=== PATIENT | male | born 2000 | race Caucasian/White ===

== ENCOUNTER 2020-02-08 00:03 | Day surgery (SDC) | payer OTHER, SELFPAY ==
[2020-02-01 14:53] VITALS: BMI 20.8
[2020-02-08 10:20] VITALS: BP 118/83; PULSE 74; RESP 14; TEMP 37; O2SAT 99
[2020-02-08] MEDS: LACTATED RINGERS 1,000 ML 150 ML IV CONT (10:40)
--- NOTE | 2020-02-08 11:17 | P.PNAN_ITS ---
Anes - Initial Pre Proc Eval Procedure: Operation Date: 02/08/20 11:30 Proposed Procedures p Esophagogastroduodenoscopy - Matt Nash DO Date/Time: 02/08/20 11:17 Surgeon: Matt Nash DO Pre Op Diagnosis: IBS/ Gerd Patient Data Age: 19 Gender: M Height: 5 ft 10 in Weight: 72.2 kg Last Vital Signs Temp 98.6 F 02/08/20 10:20 Pulse 74 02/08/20 10:20 Resp 14 02/08/20 10:20 BP 118/83 02/08/20 10:20 Pulse Ox 99 02/08/20 10:20 Allergies Allergy/AdvReac Type Severity Reaction Status Date / Time cefdinir [From Omnicef] Allergy Intermediate Rash Verified 02/05/20 14:05 latex Allergy Mild Rash Verified 02/05/20 14:05 Home Medications Medication Instructions Recorded Confirmed Type Adults Multivitamin 1 tab-cap PO DAILY 02/01/20 02/08/20 History omeprazole 20 mg PO DAILY 02/01/20 02/08/20 History Patient hx anesthesia problems: none Family hx anesthesia problems: none [facility] Past Medical History Medical History (Updated 02/08/20 @ 11:17 by Donovan Flores MD) GERD (gastroesophageal reflux disease) Social History Social History Gender identity (if verbalized by the patient): Male Anes - Eval Final PreProcedure Day of Procedure 02/08/20 11:17 Patient weight: normal Heart: regular rate and rhythm Lungs: clear to auscultation Airway: Mallampati scale class II Last oral intake: >/= 8 hours ASA classification: II Emergent: no Anesthetic plan: proceed Anesthesia type and monitoring: general GIVS and standard monitoring Informed Consent: The patient's anesthetic plan and its attendant risks and benefits were discussed with the patient/family/POA. Questions were solicited and answers provided to the satisfaction of the patient/family/POA.
--- NOTE | 2020-02-08 11:45 | PM.IMHP ---
H&P: HPI History of Present Illness Chief complaint: IBS/ Gerd Narrative: Reason for evaluation GERD and irritable bowel syndrome. Impression: GERD. Alternating constipation and diarrhea compatible with irritable bowel syndrome. Patient does have a family history of ulcerative colitis. Recommendation: EGD. Colonoscopy will be scheduled. History: Very pleasant gentleman is a history reflux disease. he has heartburn 3-4 times per week. Since beginning omeprazole his symptoms have abated. Dysphagia odynophagia is denied for the most part. He does have some pill dysphagia. Nausea, vomiting and hematemesis tonight. He does have alternating constipation and diarrhea. He does have a family history of ulcerative colitis. Past medical history: GERD IBS. Past surgical history: Tonsillectomy. Family medical history: Grandmother scan and bladder cancer. Grandfather lung and heart disease. Father asthma and IBS. Sister as min IBS. Grandmother ulcerative colitis. [employer] was negative. Social history was noncontributory. Physical examination : General: very pleasant patient in no acute distress. HEENT: Head was normocephalic sclerae is clear mouth without masses neck was supple. Heart: Rate rhythm regular without S3 or S4. Lungs: CTA. Abdomen: Soft with no guarding or rigidity. Bowel sounds were active. Neurologic: Cranial nerves 2 through 12 intact. No focal defects. No clonus. Musculoskeletal system: Revealed no joint tenderness or swelling no muscle atrophy. Extremities: Reveal no significant edema. Skin: Warm and dry with normal turgor. Mental status: intact. Patient is alert and oriented. [facility] Past Medical History Medical History (Updated 02/08/20 @ 11:17 by Donovan Flores MD) GERD (gastroesophageal reflux disease) Social History Social History Gender identity (if verbalized by the patient): Male Meds Home Medications and Allergies Home Medications Medication Instructions Recorded Confirmed Type Adults Multivitamin 1 tab-cap PO DAILY 02/01/20 02/08/20 History omeprazole 20 mg PO DAILY 02/01/20 02/08/20 History Allergies Allergy/AdvReac Type Severity Reaction Status Date / Time cefdinir [From Omnicef] Allergy Intermediate Rash Verified 02/05/20 14:05 latex Allergy Mild Rash Verified 02/05/20 14:05 Vital Signs Vital Signs - 24 hr 02/08/20 10:20 Temperature 37.0 C Pulse Rate 74 Respiratory Rate 14 Blood Pressure 118/83 Pulse Oximetry 99
[2020-02-08 11:59] VITALS: BP 88/52; PULSE 86; RESP 20; O2SAT 97
[2020-02-08 12:06] VITALS: BP 88/52; PULSE 86; RESP 20; O2SAT 97
[2020-02-08 12:09] VITALS: BP 88/52; PULSE 82; RESP 20; O2SAT 98
[2020-02-08 12:19] VITALS: BP 98/49; PULSE 67; RESP 20; O2SAT 99
== END 2020-02-08 12:30 | disposition home or self-care (01) ==
PROVIDERS: PCP Pediatrics; Visit Provider Internal Medicine Gastroenterology
PROC: 0DJ08ZZ Inspection of Upper Intestinal Tract, Via Natural or Artificial Opening Endoscopic (ICD-10-PCS; CPT 43235; principal; 2020-02-08 11:30)
DX: K21.0 Gastro-esophageal reflux disease with esophagitis (principal); K22.2 Esophageal obstruction
CPT/HCPCS: 43239; 87081; 88305; J2704; J7120

== ENCOUNTER 2020-02-11 00:05 | Day surgery (SDC) | payer OTHER, SELFPAY ==
[2020-02-05 13:59] VITALS: BMI 21.2
[2020-02-11 07:49] VITALS: BP 115/82; PULSE 83; RESP 16; TEMP 36.7; O2SAT 97
[2020-02-11] MEDS: LACTATED RINGERS 1,000 ML 150 ML IV CONT ×2 (07:51→08:51)
--- NOTE | 2020-02-11 08:06 | P.PNAN_ITS ---
Anes - Initial Pre Proc Eval Procedure: Operation Date: 02/11/20 08:30 Proposed Procedures p Colonoscopy - Matt Nash DO Date/Time: 02/11/20 08:06 Surgeon: Matt Nash DO Pre Op Diagnosis: IBS/ Gerd Patient Data Age: 19 Gender: M Height: 1.78 m Weight: 67.8 kg Last Vital Signs Temp 36.7 C 02/11/20 07:49 Pulse 83 02/11/20 07:49 Resp 16 02/11/20 07:49 BP 115/82 02/11/20 07:49 Pulse Ox 97 02/11/20 07:49 Allergies Allergy/AdvReac Type Severity Reaction Status Date / Time cefdinir [From Omnicef] Allergy Intermediate Rash Verified 02/11/20 07:45 latex Allergy Mild Rash Verified 02/11/20 07:45 Home Medications Medication Instructions Recorded Confirmed Type Adults Multivitamin 1 tab-cap PO DAILY 02/01/20 02/11/20 History omeprazole 20 mg PO DAILY 02/01/20 02/11/20 History Patient hx anesthesia problems: none Family hx anesthesia problems: none COUNT INCLUDES [facility] Past Medical History Medical History (Updated 02/08/20 @ 11:17 by Donovan Flores MD) GERD (gastroesophageal reflux disease) Surgical History Surgical History (Updated 02/10/20 @ 14:19 by Cole Tolbert DO) History of tonsillectomy Social History Social History Gender identity (if verbalized by the patient): Male Anes - Eval Final PreProcedure Day of Procedure 02/11/20 08:06 Patient weight: normal Heart: regular rate and rhythm Lungs: clear to auscultation and normal air movement Airway: Mallampati scale class 1 Neurological: alert and oriented Last oral intake: >/= 8 hours ASA classification: II Emergent: no Anesthetic plan: proceed Anesthesia type and monitoring: general GIVS and standard monitoring Informed Consent: The patient's anesthetic plan and its attendant risks and benefits were discussed with the patient/family/POA. Questions were solicited and answers provided to the satisfaction of the patient/family/POA.
--- NOTE | 2020-02-11 08:20 | WPDHPUPDATE1 ---
History and Physical Update Update Date/Time: 02/11/20 08:20 History and Physical has been reviewed, including an updated exam of the patient. There are NO changes in the patient's condition. Risks, benefits, and alternatives have been discussed and questions answered. Patient agrees to proceed with procedure.
[2020-02-11 08:58] VITALS: BP 83/33; PULSE 79; RESP 20; O2SAT 96
[2020-02-11 09:08] VITALS: BP 81/34; PULSE 65; RESP 21; O2SAT 99
[2020-02-11 09:18] VITALS: BP 103/61; PULSE 63; RESP 15; O2SAT 100
[2020-02-11 09:28] VITALS: BP 105/62; PULSE 62; RESP 18; O2SAT 98
== END 2020-02-11 09:40 | disposition home or self-care (01) ==
PROVIDERS: PCP Pediatrics; Visit Provider Internal Medicine Gastroenterology
PROC: 0DJD8ZZ Inspection of Lower Intestinal Tract, Via Natural or Artificial Opening Endoscopic (ICD-10-PCS; CPT 45378; principal; 2020-02-11 08:30)
DX: K52.9 Noninfective gastroenteritis and colitis, unspecified (principal); K21.9 Gastro-esophageal reflux disease without esophagitis
CPT/HCPCS: 45380; 88305; J2704; J7120

== ENCOUNTER 2020-11-07 10:16 | Emergency (ER) | payer OTHER, SELFPAY ==
[2020-11-07 10:26] VITALS: BP 142/80; PULSE 89; RESP 20; TEMP 36.4; O2SAT 100
--- NOTE | 2020-11-07 10:52 | ED.URI ---
HPI - URI/Sore Throat General Chief Complaint: Upper Respiratory Infection Stated Complaint: sore throat/runny nose/congestion/fever Source: patient and RN notes reviewed Limitations: no limitations History of Present Illness HPI Narrative: The patient, non-smoker/nondrinker student, presents with fever. Patient states he has 1/2-week, 3-day history of fever to 101 [tympanic], associated with scratchy throat and nasal congestion. No significant cough, S OB, wheezing/sneezing, loss of taste/smell, CP, earache; he and family have been tested for Covid and he was negative last month, but family was positive.. Related Data Home Medications Medication Instructions Recorded Confirmed Adults Multivitamin 1 tab-cap PO DAILY 02/01/20 02/11/20 omeprazole 20 mg PO DAILY 02/01/20 02/11/20 Allergies Allergy/AdvReac Type Severity Reaction Status Date / Time cefdinir [From Omnicef] Allergy Intermediate Rash Verified 02/11/20 07:45 latex Allergy Mild Rash Verified 02/11/20 07:45 Review of Systems Review of Systems: Narrative: The patient has been informed that they may have pre-hypertension or Hypertension based on a BP reading in the department. I recommend that the patient call the primary care provider listed on their discharge instructions or a physician of their choice this week to arrange follow up for further evaluation of possible pre-hypertension or Hypertension General/Constitutional: No weight loss, REPORTS fever Eyes: N0: Redness,discharge Ears/Nose/Throat: No: Epistaxis,ear discharge Respiratory: Denies: Hemoptysis Gastrointestinal: No Vomiting, Bleeding-rectal Skin: No Lumps, eruption Neurologic: No Focal Weakness,Sz Hematologic: Denies: Petechiae/Purpura Psychiatric: No: Suicida ideationl All Other Systems: Reviewed and Negative [facility] Past Medical History Medical History (Updated 11/07/20 @ 10:32 by Kedar Villafuerte MD) Eosinophilic esophagitis GERD (gastroesophageal reflux disease) Surgical History Surgical History (Updated 02/10/20 @ 14:19 by Cole Tolbert DO) History of tonsillectomy Social History Social History Gender identity (if verbalized by the patient): Male Comments At time of signature, agree with nursing past medical, surgical, social and family history. There is no relevant family history pertinent to the presenting complaint Exam Narrative: Exam Narrative: General Appearance: Well appearing, Well nourished EYE: PERRLA, Conjunctiva clear Ears: Auditory canal normal, Nose: Rhinorrhea, Mucousal erythema Mouth/Throat: MM moist, Uvula midline, Pharyngeal erythema Supple, Respiratory: No respiratory distress, Breath sounds equal, Clear to auscultation Cardiovascular: RRR, No JVD Musculoskeletal: Non tender, Normal strength Skin: Warm, Dry Neurological: A&O x3, Normal affect The patient agrees, in light of health emergency- in my medical judgement, only a personal chat was preferable to fully undress & examine the patient exhibiting potential COVID symptoms, in order to limit risk of infection. Course Vital Signs Vital signs: Vital Signs Temperature 97.5 F L 11/07/20 10:26 Pulse Rate 89 11/07/20 10:26 Respiratory Rate 20 11/07/20 10:26 Blood Pressure 142/80 H 11/07/20 10:26 Pulse Oximetry 100 11/07/20 10:26 Temperature 97.5 F L 11/07/20 10:26 Pulse Rate 89 11/07/20 10:26 Respiratory Rate 20 11/07/20 10:26 Blood Pressure 142/80 H 11/07/20 10:26 Pulse Oximetry 100 11/07/20 10:26 MDM - URI/Sore Throat Lab Data Labs: Strep Screen Presumptive Negative *(Reference Range: Negative)* Discharge Plan Discharge Clinical Impression: Upper respiratory infection Patient Disposition: Home, Self-Care Condition: Stable Instructions: Antibiotic Form, Pharyngitis (ED) Prescriptions: New azithromycin 250 mg tablet See Rx Instructions .RO
== END 2020-11-07 11:02 | disposition home or self-care (01) ==
PROVIDERS: Emergency Provider Emergency Medicine; PCP Pediatrics
DX: J06.9 Acute upper respiratory infection, unspecified (principal); Z20.828 Contact with and (suspected) exposure to other viral communicable diseases; K21.9 Gastro-esophageal reflux disease without esophagitis
CPT/HCPCS: 87081; 87880; 99213; G0463

== ENCOUNTER 2021-06-23 10:08 | Emergency (ER) | payer OTHER, SELFPAY ==
[2021-06-23 10:18] VITALS: BP 120/76; PULSE 87; RESP 16; TEMP 36.9; O2SAT 100
--- NOTE | 2021-06-23 10:24 | ED.URI ---
HPI - URI/Sore Throat General Chief Complaint: Upper Respiratory Infection Stated Complaint: SINUS CONGESTION Time Seen by Provider: 06/23/21 10:11 Source: patient Mode of arrival: ambulatory Limitations: no limitations History of Present Illness HPI Narrative: 20-year-old male presents to [facility] with complaints of sinus pressure, bilateral ear pressure and postnasal drip for the past 4-5 days. Patient has been taking [id number] Claritin, Sudafed and Flonase with minimal relief. Patient reports that his father is currently ill with similar symptoms. Patient has had his tonsils removed in the past. Patient denies shortness of breath, wheezing, nausea, vomiting, diarrhea, fever, body aches or chills. Patient has received his Covid vaccine. MD elicited complaint: nasal congestion and sinus pain Onset (ago): day(s) (4) Able to tolerate fluids by mouth: Yes Exacerbating factors: nothing Treatments prior to arrival: cold medicine Related Data Home Medications Medication Instructions Recorded Confirmed omeprazole 20 mg PO DAILY 02/01/20 02/11/20 Allergies Allergy/AdvReac Type Severity Reaction Status Date / Time cefdinir [From Omnicef] Allergy Intermediate Rash Verified 11/07/20 14:29 latex Allergy Mild Rash Verified 11/07/20 14:29 aspartame AdvReac Severe SHUT LIVER Unverified 11/07/20 14:29 DOWN Review of Systems Constitutional: Constitutional: Denies chills, Denies fatigue, Denies fever(s) and Denies weakness ENT: Denies dizziness, Reports nasal congestion and Denies sore throat Cardiovascular: Cardiovascular: Denies rapid heart rate, Denies radiating jaw, neck or arm pain and Denies slow heart rate Respiratory: Respiratory: Denies chest congestion, Denies cough, Denies dyspnea and Denies wheezing Gastrointestinal: Gastrointestinal: Denies constipation, Denies diarrhea, Denies nausea and Denies vomiting Integumentary/Breasts: Skin/Breast: Denies rash Endocrine: Endocrine: Denies fatigue PMFSH Past Medical History Medical History Eosinophilic esophagitis GERD (gastroesophageal reflux disease) Surgical History Surgical History History of tonsillectomy Social History Social History Gender identity (if verbalized by the patient): Male Comments At time of signature, I agree with nursing past medical, surgical, social and family history. There is no relevant family history pertinent to the presenting complaint. Exam Const: General: no acute distress and alert Nutritional Appearance: well nourished Orientation/consciousness: patient oriented x3 HENMT: Head: normal to inspection Ears: external ears normal, TM's normal bilaterally and EAC's normal General nose exam: Normal external nose present Mouth: Yes lip normal and Yes dry mucous membranes Throat: posterior oropharynx normal and uvula midline Other: Tonsils absent, mild amount of clear postnasal drainage noted Neck: Neck: normal visual inspection Resp: Effort & Inspection: normal respiratory effort, not labored and not tachypneic Auscultation: clear to auscultation bilaterally Cardio: Rate: regular rate, not bradycardic and not tachycardic Rhythm: regular rhythm Skin: General skin exam: normal color Rashes: no rashes Wounds: no wounds Neuro: General: patient oriented x3 and moves all extremities Speech: normal speech Psych: Appearance: grossly normal Mental Status: mental status grossly normal Affect: normal affect Attitude: cooperative Thought content: Yes Normal thought content present Course Vital Signs Vital signs: Vital Signs Temperature 36.9 C 06/23/21 10:18 Pulse Rate 87 06/23/21 10:18 Respiratory Rate 16 06/23/21 10:18 Blood Pressure 120/76 06/23/21 10:18 Pulse Oximetry 100 06/23/21 10:18 Temperature 36.9 C 06/23/21 1
== END 2021-06-23 10:35 | disposition home or self-care (01) ==
PROVIDERS: Emergency Provider Nurse Practitioner Family
DX: J06.9 Acute upper respiratory infection, unspecified (principal); K21.9 Gastro-esophageal reflux disease without esophagitis
CPT/HCPCS: 99213; G0463

== ENCOUNTER 2021-10-28 16:50 | Emergency (ER) | payer OTHER, SELFPAY ==
[2021-10-28 16:58] VITALS: BP 128/73; PULSE 87; RESP 16; TEMP 36.9; O2SAT 100
--- NOTE | 2021-10-28 16:59 | ED.MALEGU ---
HPI - Male Genitourinary General Chief complaint: Urogenital-Male Stated complaint: testicular pain Time Seen by Provider: 10/28/21 17:00 Source: patient and RN notes reviewed Mode of arrival: ambulatory Limitations: no limitations History of Present Illness HPI Narrative: 21-year-old male who presents his care with complaints of 2 days history of testicle pain with increased pain today since 1500. Patient reports pain in the upper aspect of his left testicle. denies any penile drainage or any lesions. Patient voices no concern for STD's. Patient reports that he has not performed any heavy lifting or any straining for the past 2 weeks. Patient states that his pain to his left testicle comes in waves sometimes it is sharp and hurts 7/10 pain level. Patient denies any burning or pain with urination. MD Complaint: testicle pain Onset (ago): day(s) (2) Related Data Home Medications Medication Instructions Recorded Confirmed omeprazole [Prilosec] 20 mg PO DAILY 10/28/21 10/28/21 Allergies Allergy/AdvReac Type Severity Reaction Status Date / Time cefdinir [From Omnicef] Allergy Intermediate Rash Verified 10/28/21 18:44 latex Allergy Mild Rash Verified 10/28/21 18:44 aspartame AdvReac Severe SHUT LIVER Verified 10/28/21 18:44 DOWN Review of Systems Review of Systems: CONSTITUTIONAL: Denies fever, chills, or sweats. EYES: Denies visual changes, redness, or discharge. ENT: Denies rhinorrhea, congestion, sore throat, or otalgia. CARDIOVASCULAR: Denies chest pain, palpitations, or edema. RESPIRATORY: Denies cough or dyspnea. GASTROINTESTINAL: Denies abdominal pain, nausea, vomiting, or diarrhea. GENITOURINARY: Denies dysuria or hematuria.positive for left testicle pain SKIN: Denies rash or itching. MUSCULOSKELETAL: Denies back pain, joint pain, or myalgia. NEUROLOGIC: Denies headache, numbness, or weakness. PSYCHIATRIC: Denies anxiety or depression. All systems reviewed & are unremarkable except as noted in HPI and below PMFSH Past Medical History Medical History Eosinophilic esophagitis GERD (gastroesophageal reflux disease) Surgical History Surgical History History of tonsillectomy Family History Family History (Updated 10/28/21 @ 17:22 by Erna Abbott NP) Other Family history non-contributory Social History Social History (Updated 10/28/21 @ 17:23 by Erna Abbott NP) Smoking status: Never smoker Gender identity (if verbalized by the patient): Male Comments At time of signature, agree with nursing past medical, surgical, social and family history. There is no relevant family history pertinent to the presenting complaint Exam Narrative: GENERAL: Well-appearing, well-nourished, and in no acute distress. HEAD: Normocephalic, atraumatic. EYES: PERRLA and EOMI. ENT: Nares clear, no rhinorrhea or epistaxis. Mucous membranes moist. NECK: Supple. no lymphadenopathy CHEST: Clear to auscultation. No respiratory distress. SAO2 100% on room air HEART: Regular rate and rhythm. No murmur heard. Normal peripheral pulses. ABDOMEN: Soft, nontender, nondistended, normal active bowel sounds. No redness or swelling to testicles, pain with palpation to left upper testicle, no drainage or lesions noted on penis. Patient denies any pain or burning with urination. EXTREMITIES: Normal range of motion. No edema. SKIN: Warm, dry, no rash. NEURO: No focal deficits. Alert and oriented x3. Course Vital Signs Vital signs: Vital Signs Temperature 36.9 C 10/28/21 16:58 Pulse Rate 87 10/28/21 16:58 Respiratory Rate 16 10/28/21 16:58 Blood Pressure 128/73 10/28/21 16:58 Pulse Oximetry 100 10/28/21 16:58 Temperature 36.9 C 10/28/21 16:58 Pulse Rate 87 10/28/21 16:58 Respiratory Rate 16 10/28/21 16:58 Blood Pressure 128/73 10/28/21 16:58 Pulse Oximetry 100 10/28/21 16:58
== END 2021-10-28 17:19 | disposition short-term general hospital (02) ==
PROVIDERS: Emergency Provider Registered Nurse
DX: N50.812 Left testicular pain (principal); K21.9 Gastro-esophageal reflux disease without esophagitis
CPT/HCPCS: 99212; G0463

== ENCOUNTER 2021-10-28 17:41 | Emergency (ER) | payer OTHER, SELFPAY ==
--- NOTE | ~2021-10-28 | US_ITS ---
US scrotum doppler INDICATION: Testicular pain. TECHNIQUE: Testicular sonogram utilizing grayscale and color Doppler FINDINGS: The testes are normal in size and appearance. No focal lesions are seen. The right testes measures 4.2 x 1.8 x 3.1 cm centimeters, and the left testis measures 4.1 x 2.1 x 2.6 cm cm. There is normal vascular flow to both testes. There is a 2 mm left epididymal cyst. There is a left varicocele. IMPRESSION: 1. Left varicocele. Reviewed, dictated and finalized at location A. TENANCE OPERATOR IMPRESSION: 1. Left varicocele.
[2021-10-28 17:43] VITALS: BP 129/73; PULSE 64; RESP 16; TEMP 36.6; O2SAT 98
[2021-10-28 18:20] LABS: Add Urine Microscopic? YES; Appearance Urine Clear (Clear); Bilirubin Urine Negative (Negative); Blood Urine Negative (Negative); Color Urine Yellow (Yellow); Glucose Urine UA Negative (Negative); Ketones Urine Negative (Negative); Leukocyte Esterase Ur Negative LEU/UL (Negative); Mucus Urine Few /lpf; Nitrate Urine Negative (Negative); Protein Urine Negative (Negative); Specific Grav Ur 1.026 (1.001-1.035); Urobilinogen Urine Negative mg/dL (<2.0)
--- NOTE | 2021-10-28 18:30 | ED.MALEGU ---
HPI - Male Genitourinary General Chief complaint: Urogenital-Male <Haleigh Gold PA-C - Last Filed: 10/28/21 19:09> Stated complaint: testicular pain <ROSALES Mina Last Filed: 10/28/21 19:09> Time Seen by Provider: 10/28/21 17:51 <ROSALES Mina Last Filed: 10/28/21 19:09> Source: patient <ROSALES Mina Last Filed: 10/28/21 19:09> Mode of arrival: ambulatory <ROSALES Mina Last Filed: 10/28/21 19:09> Limitations: no limitations <ROSALES Mina Last Filed: 10/28/21 19:09> History of Present Illness HPI Narrative: This is a 21-year-old male that presents to the emergency department for testicular pain noted since yesterday. Reports an aching pain in the left testicle. Reports worsening today which prompted him to be seen. He is evaluated at the urgent care and sent here. Denies fever, dysuria, or abnormal urethral discharge. <ROSALES Mina Last Filed: 10/28/21 19:09> Related Data Home medications: Home Medications Medication Instructions Recorded Confirmed omeprazole [Prilosec] 20 mg PO DAILY 10/28/21 10/28/21 <ROSALES Mina Last Filed: 10/28/21 19:09> Allergies/Adverse reactions: Allergies Allergy/AdvReac Type Severity Reaction Status Date / Time cefdinir [From Omnicef] Allergy Intermediate Rash Verified 10/28/21 18:44 latex Allergy Mild Rash Verified 10/28/21 18:44 aspartame AdvReac Severe SHUT LIVER Verified 10/28/21 18:44 DOWN <ROSALES Mina Last Filed: 10/28/21 19:09> Review of Systems Review of Systems: CONSTITUTIONAL: Denies fever GASTROINTESTINAL: Denies abdominal pain, nausea, vomiting GENITOURINARY: Denies dysuria or hematuria. SKIN: Denies rash <ROSALES Mina Last Filed: 10/28/21 19:09> All systems reviewed & are unremarkable except as noted in HPI and below <Haleigh Gold PA-C - Last Filed: 10/28/21 19:09> [facility] Past Medical History Medical History: Medical History Eosinophilic esophagitis GERD (gastroesophageal reflux disease) <Haleigh Gold PA-C - Last Filed: 10/28/21 19:09> Surgical History Surgical History: Surgical History History of tonsillectomy <Haleigh Gold PA-C - Last Filed: 10/28/21 19:09> Family History Family History: Family History (Updated 10/28/21 @ 17:22 by Erna Abbott NP) Other Family history non-contributory <Haleigh Gold PA-C - Last Filed: 10/28/21 19:09> Social History Social History: Social History (Updated 10/28/21 @ 17:23 by Erna Abbott NP) Smoking status: Never smoker Gender identity (if verbalized by the patient): Male <Haleigh Gold PA-C - Last Filed: 10/28/21 19:09> Exam Narrative: GENERAL: Well-appearing, well-nourished, and in no acute distress. HEAD: Normocephalic, atraumatic. EYES: EOMI. CHEST: Clear to auscultation. No respiratory distress. No wheezes rales or rhonchi HEART: Regular rate and rhythm. No murmur heard. Normal peripheral pulses. ABDOMEN: Soft, nontender, nondistended, normal active bowel sounds. No CVA tenderness EXTREMITIES: Normal range of motion. No edema. SKIN: Warm, dry, no rash. NEURO: No focal deficits. Alert and oriented x3. PSYCH: Normal mood and affect MALE GENITAL: Normal appearing genitalia. No abnormal urethral discharge. Mild tenderness to palpation of left testicle. No abnormal erythema or edema <Halegih Gold PA-C - Last Filed: 10/28/21 19:09> Course [employer] Physician Supervision I did not see this patient nor was the care plan discussed with me. I was available for evaluation and consultation, I agree with the documentation <Hardeep Smith MD - Last Filed: 10/28/21 22:02> Vital Signs Vital signs: Vital Signs Temperature 36.6 C 10/28/21 17:43 Pulse Rate 64 10/28/21
[2021-10-28 19:17] VITALS: PULSE 70; RESP 18; O2SAT 100
== END 2021-10-28 19:18 | disposition home or self-care (01) ==
PROVIDERS: Physician Assistant; Emergency Provider Emergency Medicine
DX: I86.1 Scrotal varices (principal); K21.9 Gastro-esophageal reflux disease without esophagitis; R82.998 Other abnormal findings in urine
CPT/HCPCS: 76870; 81001; 87491; 87591; 87661; 93976; 99284

== ENCOUNTER 2022-11-06 11:00 | Outpatient (CLI) | payer OTHER, SELFPAY ==
[2022-11-06 12:38] LABS: Kit Draw Collected
== END 2022-11-06 11:01 | disposition home or self-care (01) ==
LOC: ANHGOSHLAB 11:02
PROVIDERS: PCP Family Medicine; Visit Provider Family Medicine
DX: G43.909 Migraine, unspecified, not intractable, without status migrainosus (principal); Z13.29 Encounter for screening for other suspected endocrine disorder; Z79.899 Other long term (current) drug therapy; Z00.00 Encounter for general adult medical examination without abnormal findings; Z13.220 Encounter for screening for lipoid disorders; E55.9 Vitamin D deficiency, unspecified
CPT/HCPCS: 36415

== ENCOUNTER 2023-01-28 15:16 | Emergency (ER) | payer OTHER, SELFPAY ==
[2023-01-28 15:21] VITALS: BP 125/77; PULSE 97; RESP 16; TEMP 37.3; O2SAT 98
--- NOTE | 2023-01-28 15:28 | ED.URI ---
HPI - URI/Sore Throat General Chief Complaint: Upper Respiratory Infection Stated Complaint: cough, congestion, sore throat Time Seen by Provider: 01/28/23 15:41 Source: patient and RN notes reviewed Mode of arrival: ambulatory Limitations: no limitations History of Present Illness HPI Narrative: 22-year-old male presents with concern for 2 week history of cough, chest congestion. Reports he had sinus congestion and drainage which is resolving. Reports he has been using Sudafed and antihistamines. He denies shortness of breath. Reports low-grade fever MD elicited complaint: cough and sore throat Related Data Home Medications Medication Instructions Recorded Confirmed omeprazole 20 mg capsule,delayed 20 mg PO DAILY 10/28/21 01/28/23 release multivitamin (Daily Multi-Vitamin 1 tablet PO DAILY 09/13/22 01/28/23 tablet) ubrogepant 50 mg tablet (Ubrelvy) 50 mg PO PRN PRN Migraine Headache 01/28/23 01/28/23 Allergies Allergy/AdvReac Type Severity Reaction Status Date / Time cefdinir [From Omnicef] Allergy Intermediate Rash Verified 01/28/23 15:23 latex Allergy Mild Rash Verified 01/28/23 15:23 aspartame AdvReac Severe SHUT LIVER Verified 01/28/23 15:23 DOWN sumatriptan AdvReac Mild numbness Uncoded 01/28/23 15:23 in head Review of Systems Review of Systems: CONSTITUTIONAL: Reports malaise, low-grade fever. EYES: Denies visual changes, redness, or discharge. ENT: Denies rhinorrhea, congestion, sinus pain, otalgia and sore throat. CARDIOVASCULAR: Denies chest pain, palpitations, or edema. RESPIRATORY: Reports cough and chest congestion. Denies dyspnea. GASTROINTESTINAL: Denies abdominal pain, nausea, vomiting, diarrhea SKIN: Denies rash or itching. MUSCULOSKELETAL: Denies myalgia. NEUROLOGIC: Denies headache. All systems reviewed & are unremarkable except as noted in HPI and below PMFSH Past Medical History Medical History Eosinophilic esophagitis GERD (gastroesophageal reflux disease) Migraine Seasonal allergies Surgical History Surgical History History of tonsillectomy S/P scrotal varicocelectomy (~11/2021) left Family History Family History Other Family history non-contributory Social History Social History Smoking status: Never smoker Alcohol intake: never Substance use: never Substance use type: does not use Lack of Transportation: No Lack of Food: Never True Current Housing: I Have Housing Concerned About Future Housing: No Difficulty Paying Gas/Electric Bills: No Difficulty Paying for Meds: No Currently Unemployed: No Education: High School Diploma/GED Difficulty w/ Childcare or Family Care: No Living arrangements: with family Occupation/Education: student Additional occupation/education comments: [employer] Gender identity (if verbalized by the patient): Male Agree to blood products: Yes Comments At time of signature, agree with nursing past medical, surgical, social and family history. There is no relevant family history pertinent to the presenting complaint Exam Narrative: GENERAL: Nontoxic-appearing and in no acute distress. HEAD: Normocephalic EYES: PERRLA, conjunctivae clear ENT: Nares clear, clear discharge. Mucous membranes moist. TM pearly byrd with dull light reflex bilaterally; no tragal tenderness. Oropharynx not erythematous without lesions. Tonsils not enlarged and without exudate, no drooling, no hoarseness, no trismus, uvula midline. NECK: Supple. No lymphadenopathy CHEST: Clear to auscultation, breath sounds equal. No wheezing, rhonchi, rales, or stridor. No respiratory distress, speaks in full sentences. Cough noted HEART: Regular rate and rhythm. No murmur heard. SKIN: Warm, dry, no ra
== END 2023-01-28 15:53 | disposition home or self-care (01) ==
PROVIDERS: Emergency Provider Nurse Practitioner; PCP Family Medicine
DX: J06.9 Acute upper respiratory infection, unspecified (principal); K21.9 Gastro-esophageal reflux disease without esophagitis; K20.0 Eosinophilic esophagitis
CPT/HCPCS: 99213; G0463

== ENCOUNTER 2023-06-30 13:47 | Emergency (ER) | payer OTHER, SELFPAY ==
--- NOTE | 2023-06-30 13:51 | ED.URI ---
HPI - URI/Sore Throat General Chief Complaint: Upper Respiratory Infection Stated Complaint: sore throat,fever,headache Source: patient and RN notes reviewed History of Present Illness HPI Narrative: 22 yo M presents to urgent care with complaitns of sore throat and bilateral ear pressure. Pt states he has also had some nasal drainage and slight cough. Pt reports body aches and chills at home and states this all started yesterday morning. Denies any vomiting, SOB, chest pain, GRIFFIN, or congestion. Pt has taken allergy meds and ibuprofen at home. Related Data Home Medications Medication Instructions Recorded Confirmed omeprazole 20 mg capsule,delayed 20 mg PO DAILY 10/28/21 01/28/23 release multivitamin (Daily Multi-Vitamin 1 tablet PO DAILY 09/13/22 01/28/23 tablet) ubrogepant 50 mg tablet (Ubrelvy) 50 mg PO PRN PRN Migraine Headache 01/28/23 01/28/23 Allergies Allergy/AdvReac Type Severity Reaction Status Date / Time cefdinir [From Omnicef] Allergy Intermediate Rash Verified 01/28/23 15:23 latex Allergy Mild Rash Verified 01/28/23 15:23 aspartame AdvReac Severe SHUT LIVER Verified 01/28/23 15:23 DOWN sumatriptan AdvReac Mild numbness Uncoded 01/28/23 15:23 in head Review of Systems Review of Systems: CONSTITUTIONAL: Denies fever, chills, or sweats. EYES: Denies visual changes, redness, or discharge. ENT: sore throat and bilateral ear pressure CARDIOVASCULAR: Denies chest pain, palpitations, or edema. RESPIRATORY: Denies cough or dyspnea. GASTROINTESTINAL: Denies abdominal pain, nausea, vomiting, or diarrhea. GENITOURINARY: Denies dysuria or hematuria. SKIN: Denies rash or itching. MUSCULOSKELETAL: body aches NEUROLOGIC: Denies headache, numbness, or weakness. Pertinent positives per HPI. [facility] Past Medical History Medical History Eosinophilic esophagitis GERD (gastroesophageal reflux disease) Migraine Seasonal allergies Surgical History Surgical History History of tonsillectomy S/P scrotal varicocelectomy (~11/2021) left Family History Family History Other Family history non-contributory Social History Social History Smoking status: Never smoker Alcohol intake: never Substance use: never Substance use type: does not use Lack of Transportation: No Lack of Food: Never True Current Housing: I Have Housing Concerned About Future Housing: No Difficulty Paying Gas/Electric Bills: No Difficulty Paying for Meds: No Currently Unemployed: No Education: High School Diploma/GED Difficulty w/ Childcare or Family Care: No Living arrangements: with family Occupation/Education: student Additional occupation/education comments: [employer] Gender identity (if verbalized by the patient): Male Agree to blood products: Yes Comments At the time of my signature, I reviewed and agree with the nursing past medical, surgical, social, and family history. There is no relevant family history pertinent to the patient complaint. Exam Narrative: GENERAL: This is a well-nourished, well-developed patient, in no apparent distress. HEAD: normocephalic, atraumatic. EYES: Sclera clear/white. Vision is grossly intact. EARS: External ears normal, auditory canals clear and without drainage, TMs normal without perforation. Hearing grossly intact. NOSE: External nose normal with no obvious nasal discharge, nares without redness, no rhinorrhea. THROAT: Mucous membranes moist, posterior pharynx erythemic. NECK: Neck supple, non-tender without lymphadenopathy, masses or thyromegaly. CARDIOVASCULAR: Regular rate RESPIRATORY: no respiratory distress SKIN: warm, intact with no suspicious lesions or rash, good texture and turgor. NEURO: awak
[2023-06-30 14:01] VITALS: BP 107/70; PULSE 91; RESP 16; TEMP 37.1; O2SAT 98
== END 2023-06-30 14:14 | disposition home or self-care (01) ==
PROVIDERS: Emergency Provider Nurse Practitioner Family; PCP Family Medicine
DX: J02.9 Acute pharyngitis, unspecified (principal); K21.9 Gastro-esophageal reflux disease without esophagitis; K20.0 Eosinophilic esophagitis
CPT/HCPCS: 87081; 87880; 99213; G0463

== ENCOUNTER 2024-03-09 16:34 | Emergency (ER) | payer OTHER, SELFPAY ==
[2024-03-09 16:41] VITALS: BP 112/73; PULSE 67; RESP 16; TEMP 37.1; O2SAT 98
--- NOTE | 2024-03-09 16:55 | ED.GENADULT ---
HPI - General Adult General Chief complaint: Skin/Abscess/Foreign Body Stated complaint: Throat Time Seen by Provider: 03/09/24 16:50 Source: patient, RN notes reviewed and old records reviewed Mode of arrival: ambulatory Limitations: no limitations History of Present Illness HPI narrative: 23-year-old male to [facility] for complaint of food stuck in throat since yesterday morning. Patient states that he ate pancakes yesterday with blueberries, strawberries, bananas. Patient believes he has a piece of fruit stuck in his throat. Patient endorses he has been able to eat and drink multiple times yesterday and today without difficulty. Patient denies shortness of breath, throat pain, choking sensation, nausea, vomiting, cough. patient states that after breakfast yesterday he play played a game with friends for several hours that includes what he described as theatrical speaking/yelling without difficulty. on exam patient speaking in full sentences. Respirations even and nonlabored. Patient able to control secretions. No signs of distress. Related Data Home Medications Medication Instructions Recorded Confirmed omeprazole 20 mg capsule,delayed 20 mg PO DAILY 10/28/21 03/09/24 release multivitamin (Daily Multi-Vitamin 1 tablet PO DAILY 09/13/22 03/09/24 tablet) loratadine 10 mg tablet (Claritin) 10 mg PO DAILY PRN Allergy Symptoms 11/07/23 03/09/24 ubrogepant 50 mg tablet (Ubrelvy) 50 mg PO ONCE PRN Migraine Headache 11/07/23 03/09/24 Allergies Allergy/AdvReac Type Severity Reaction Status Date / Time cefdinir [From Omnicef] Allergy Intermediate Rash Verified 03/09/24 18:02 latex Allergy Mild Rash Verified 03/09/24 18:02 aspartame AdvReac Severe SHUT LIVER Verified 03/09/24 18:02 DOWN sumatriptan AdvReac Mild numbness Uncoded 03/09/24 18:02 in head Review of Systems Review of Systems: All systems reviewed & are unremarkable except as noted in HPI and below Constitutional: Constitutional: Reports as per HPI, Denies fatigue, Denies fever(s) and Denies snoring Eyes: Eyes: Reports no additional eye complaints ENT: Reports as per HPI, Denies change in voice, Denies hoarseness, Reports odynophagia and Denies throat swelling Cardiovascular: Cardiovascular: Reports no additional cardiovascular complaints, Denies chest pain and Denies dyspnea Respiratory: Respiratory: Reports as per HPI, Denies chest congestion, Denies cough, Denies dyspnea, Denies dyspnea on exertion, Denies snoring, Denies stridor and Denies wheezing Gastrointestinal: Gastrointestinal: Reports as per HPI, Denies nausea and Denies vomiting Musculoskeletal: Musculoskeletal: Reports no additional musculoskeletal complaints Neurologic: Reports system reviewed and no additional complaints, except as documented Psychiatric: Psychiatric: Reports no additional psychiatric complaints [facility] Past Medical History Medical History Eosinophilic esophagitis GERD (gastroesophageal reflux disease) Irritable bowel syndrome with constipation and diarrhea Migraine Seasonal allergies Surgical History Surgical History History of tonsillectomy S/P scrotal varicocelectomy (~11/2021) left Family History Family History Other Family history non-contributory Social History Social History Smoking status: Never smoker Alcohol intake: never Substance use: never Substance use type: does not use Lack of Transportation: No Lack of Food: Never True Current Housing: I Have Housing Concerned About Future Housing: No Difficulty Paying Gas/Electric Bills: No Difficulty Paying for Meds: No Currently Unemployed: No Education: High School Diploma/GED Difficulty w/ Childcare or Family Care: No Shandra
== END 2024-03-09 17:40 | disposition short-term general hospital (02) ==
LOC: EXPGOSH 16:38
PROVIDERS: Emergency Provider Nurse Practitioner Family; PCP Family Medicine
DX: R09.A2 Foreign body sensation, throat (principal); K20.0 Eosinophilic esophagitis; K21.9 Gastro-esophageal reflux disease without esophagitis
CPT/HCPCS: 99212; G0463

== ENCOUNTER 2024-03-09 18:00 | Emergency (ER) | payer OTHER, SELFPAY ==
[2024-03-09 18:04] VITALS: BP 133/81; PULSE 62; RESP 16; TEMP 36.7; O2SAT 100
[2024-03-09 18:36] VITALS: RESP 20; O2SAT 100
--- NOTE | 2024-03-09 20:11 | ED.GENADULT ---
HPI - General Adult General Chief complaint: Unspecified Stated complaint: foriegn body throat Time Seen by Provider: 03/09/24 20:03 Source: patient and family Mode of arrival: ambulatory Limitations: no limitations History of Present Illness HPI narrative: 23 YEARS OLD WHITE MALE CAME TO THE EMERGENCY ROOM WITH HIS MOM BECAUSE HE WAS EATING PANCAKES LAST NIGHT AND FELL SOMETHING STUCK IN HIS THROAT. PATIENT DENIES ANY DIFFICULTY SWALLOWING OR BREATHING. PATIENT REPORT HAD SIMILAR SYMPTOM WHEN HE WAS 5 YEARS OLD. Related Data Home Medications Medication Instructions Recorded Confirmed omeprazole 20 mg capsule,delayed 20 mg PO DAILY 10/28/21 03/09/24 release multivitamin (Daily Multi-Vitamin 1 tablet PO DAILY 09/13/22 03/09/24 tablet) loratadine 10 mg tablet (Claritin) 10 mg PO DAILY PRN Allergy Symptoms 11/07/23 03/09/24 ubrogepant 50 mg tablet (Ubrelvy) 50 mg PO ONCE PRN Migraine Headache 11/07/23 03/09/24 Allergies Allergy/AdvReac Type Severity Reaction Status Date / Time cefdinir [From Omnicef] Allergy Intermediate Rash Verified 03/09/24 18:02 latex Allergy Mild Rash Verified 03/09/24 18:02 aspartame AdvReac Severe SHUT LIVER Verified 03/09/24 18:02 DOWN sumatriptan AdvReac Mild numbness Uncoded 03/09/24 18:02 in head Review of Systems Review of Systems: All systems reviewed & are unremarkable except as noted in HPI and below PMFSH Past Medical History Medical History Eosinophilic esophagitis GERD (gastroesophageal reflux disease) Irritable bowel syndrome with constipation and diarrhea Migraine Seasonal allergies Surgical History Surgical History History of tonsillectomy S/P scrotal varicocelectomy (~11/2021) left Family History Family History Other Family history non-contributory Social History Social History Smoking status: Never smoker Alcohol intake: never Substance use: never Substance use type: does not use Lack of Transportation: No Lack of Food: Never True Current Housing: I Have Housing Concerned About Future Housing: No Difficulty Paying Gas/Electric Bills: No Difficulty Paying for Meds: No Currently Unemployed: No Education: High School Diploma/GED Difficulty w/ Childcare or Family Care: No Living arrangements: with family Occupation/Education: student Additional occupation/education comments: [employer] Gender identity (if verbalized by the patient): Male Agree to blood products: Yes Exam Narrative: GENERAL APPEARANCE: WELL-DEVELOPED, WELL-NOURISHED SKIN: NORMAL COLOR HEAD: NORMOCEPHALIC, NONTRAUMATIC EYES: CLEAR CONJUNCTIVA ENT: OROPHARYNX NORMAL, EARS NORMAL, NOSE NORMAL NECK: SUPPLE, NONTENDER CHEST AND RESPIRATORY: AIRWAY PATENT, NO RESPIRATORY DISTRESS, NO ACCESSORY MUSCLE USE HEART: REGULAR RATE/RHYTHM ABDOMEN: SOFT, NONTENDER, NO ORGANOMEGALY, QUIET BOWEL SOUNDS VASCULAR: NORMAL PERIPHERAL PULSES, NORMAL CAPILLARY REFILL. MUSCULOSKELETAL: NORMAL RANGE OF MOTION, NONTENDER BACK NEUROLOGIC: ALERT AND ORIENTED ?3, PACKER IS NORMAL TESTED, NO GROSS MOTOR DEFICIT Course Vital Signs Vital signs: Vital Signs Temperature 36.7 C 03/09/24 18:04 Pulse Rate 62 03/09/24 18:04 Respiratory Rate 16 03/09/24 18:04 Blood Pressure 133/81 03/09/24 18:04 Pulse Oximetry 100 03/09/24 18:04 Oxygen Delivery Room Air 03/09/24 18:04 Temperature 36.7 C 03/09/24 18:04 Pulse Rate 62 03/09/24 18:04 Respira
[2024-03-09 20:47] VITALS: BP 123/87; PULSE 76; RESP 15; TEMP 36.7; O2SAT 99
== END 2024-03-09 20:48 | disposition home or self-care (01) ==
PROVIDERS: Emergency Provider Emergency Medicine; PCP Family Medicine
DX: T18.128A Food in esophagus causing other injury, initial encounter (principal); K58.2 Mixed irritable bowel syndrome; K21.00 Gastro-esophageal reflux disease with esophagitis, without bleeding; W44.F3XA Food entering into or through a natural orifice, initial encounter
CPT/HCPCS: 99281

== ENCOUNTER 2024-04-02 12:35 | Outpatient (CLI) | payer OTHER, SELFPAY ==
[2024-04-02 19:26] LABS: Alanine Aminotransferase 21 U/L (6-50); Albumin Level 4.4 g/dL (3.5-5.1); Alkaline Phosphatase 73 U/L (38-126); Anion Gap 7 mmol/L (4-12); Aspartate Amino Transferase 39 U/L (17-59); Bilirubin,Total 0.5 mg/dL (0.2-1.3); Blood Urea Nitrogen 19 mg/dL (9-20); Calcium 9.1 mg/dL (8.4-10.2); Carbon Dioxide 26 mmol/L (22-30); Chloride 103 mmol/L (98-107); Cholesterol 155 mg/dL (0-200); Estimated Glomerular Filt Rate > 60; Glucose 89 mg/dL (65-110); HDL Direct 41 mg/dL; Potassium 4.1 mmol/L (3.4-5.0); Sodium 136 mmol/L (137-145); Triglycerides 72 mg/dL (<150)
[2024-04-02 19:40] LABS: LDL Cholesterol Direct 98 mg/dL
[2024-04-02 20:25] LABS: Vitamin D 25 Hydroxy 47.4 ng/mL
== END 2024-04-02 12:36 | disposition home or self-care (01) ==
LOC: ANHGOSHLAB 12:37
PROVIDERS: PCP Family Medicine; Visit Provider Family Medicine
DX: Z00.00 Encounter for general adult medical examination without abnormal findings (principal); E55.9 Vitamin D deficiency, unspecified; G43.909 Migraine, unspecified, not intractable, without status migrainosus; Z13.29 Encounter for screening for other suspected endocrine disorder; Z79.899 Other long term (current) drug therapy; Z13.220 Encounter for screening for lipoid disorders; K20.0 Eosinophilic esophagitis; E78.5 Hyperlipidemia, unspecified
CPT/HCPCS: 36415; 80053; 80061; 82306; 84443

== ENCOUNTER 2024-05-05 00:23 | Day surgery (SDC) | payer OTHER, SELFPAY ==
[2024-04-30 11:54] VITALS: BMI 23.6
--- NOTE | 2024-04-30 12:19 | PC.NURSE ---
Addendum entered by Susy Singleton RN 04/30/24 13:42: cancelation at 1100 pt offered to come in at 0930/1100 procedure he is very happy to do so and instructed he may have 8 oz. of clear liq. until 3am and then NPO. verbalizes understanding Original Note: Pt is concerned that his migraines are triggered by dehydration/lack of hydration and has to be NPO aft midnight. Confirmed with practice performance manager Lynette Cabrales RN okay for patient to have 8 oz of clear liquids prior to 8 am that morning and then nothing after 8am. Pt verbalizes understanding.
[2024-05-05 09:54] VITALS: BP 117/67; PULSE 63; RESP 20; TEMP 36.1; O2SAT 100; BMI 23.8
--- NOTE | 2024-05-05 10:03 | WPDANESEPPF ---
Anes - Initial Pre Proc Eval Procedure: Operation Date: 05/05/24 11:00 Proposed Procedures p Esophagogastroduodenoscopy - Champ Kitchen MD Date/Time: 05/05/24 10:03 Surgeon: Champ Kitchen MD Pre Op Diagnosis: Eosinophilic esophagitis, GERD without esophagitis Patient Data Age: 23 Gender: M Height: 1.78 m Weight: 75.3 kg Last Vital Signs Temp 96.9 F L 05/05/24 09:54 Pulse 63 05/05/24 09:54 Resp 20 05/05/24 09:54 BP 117/67 05/05/24 09:54 Pulse Ox 100 05/05/24 09:54 O2 Del Method Room Air 05/05/24 09:54 Allergies Allergy/AdvReac Type Severity Reaction Status Date / Time aspartame Allergy Severe SHUT LIVER Verified 05/05/24 09:53 DOWN cefdinir [From Omnicef] Allergy Intermediate Rash Verified 05/05/24 09:53 latex Allergy Mild Hives Verified 05/05/24 09:53 sumatriptan AdvReac Mild numbness Uncoded 05/05/24 09:53 tongue and neck Home Medications Medication Instructions Recorded Confirmed Type multivitamin (Daily Multi-Vitamin 1 tablet PO DAILY 09/13/22 05/05/24 History tablet) loratadine 10 mg tablet (Claritin) 10 mg PO DAILY PRN Allergy Symptoms 11/07/23 05/05/24 History omeprazole 20 mg capsule,delayed 20 mg PO DAILY 04/30/24 05/05/24 History release ubrogepant 50 mg tablet (Ubrelvy) 50 mg PO ONCE PRN Migraine 05/05/24 05/05/24 Rx Headache #10 tabs Patient hx anesthesia problems: none Family hx anesthesia problems: none Results Review: All pre-operative results and documents have been reviewed as part of the pre-operative evaluation. [facility] Past Medical History Medical History (Updated 03/23/24 @ 10:48 by SUSAN Ashley) Dysphagia Eosinophilic esophagitis GERD (gastroesophageal reflux disease) Irritable bowel syndrome with constipation and diarrhea Migraine Seasonal allergies Surgical History Surgical History History of tonsillectomy S/P scrotal varicocelectomy (~11/2021) left Family History Family History Other Family history non-contributory Social History Social History Smoking status: Never smoker Alcohol intake: current Substance use: never Substance use type: does not use Lack of Transportation: No Lack of Food: Never True Current Housing: I Have Housing Concerned About Future Housing: No Difficulty Paying Gas/Electric Bills: No Difficulty Paying for Meds: No Currently Unemployed: No Education: High School Diploma/GED Difficulty w/ Childcare or Family Care: No Living arrangements: with family Occupation/Education: student Additional occupation/education comments: [employer] Gender identity (if verbalized by the patient): Male Spiritual care concerns: No Agree to blood products: Yes Anes - Eval Final PreProcedure Day of Procedure 05/05/24 10:03 Patient weight: normal Heart: regular rate and rhythm Lungs: clear to auscultation Airway: Mallampati scale class II Neurological: alert and oriented Last oral intake: >/= 8 hours ASA classification: II Emergent: no Anesthetic plan: proceed Anesthesia type and monitoring: general GIVS and standard monitoring Results Review: All pre-operative results and documents have been reviewed as part of the pre-operative evaluation. Informed Consent: The patient's anesthetic plan and its attendant risks and benefits were discussed with the patient/family/POA. Questions were solicited and answers provided to the satisfaction of the patient/family/POA.
[2024-05-05] MEDS: LACTATED RINGERS 1,000 ML 150 ML IV CONT (10:09)
--- NOTE | 2024-05-05 10:57 | PM.HPGS ---
History of Present Illness History of Present Illness Consent: Risks, benefits, and alternatives have been discussed and questions answered. Patient agrees to proceed with procedure. Chief complaint: Eosinophilic esophagitis, GERD without esophagitis Narrative: Christos London is a 23 year old male with h/o EoE, diagnosed with previous egd, on prilosec but recently had sensation of food not going down after ate steak, did not need urgent EGD and spontaneously resolved. Review of Systems Review of Systems: All systems reviewed & are unremarkable except as noted in HPI and below PMFSH Past Medical History Medical History (Updated 03/23/24 @ 10:48 by SUSAN Ashley) Dysphagia Eosinophilic esophagitis GERD (gastroesophageal reflux disease) Irritable bowel syndrome with constipation and diarrhea Migraine Seasonal allergies Surgical History Surgical History History of tonsillectomy S/P scrotal varicocelectomy (~11/2021) left Family History Family History Other Family history non-contributory Social History Social History Smoking status: Never smoker Alcohol intake: current Substance use: never Substance use type: does not use Lack of Transportation: No Lack of Food: Never True Current Housing: I Have Housing Concerned About Future Housing: No Difficulty Paying Gas/Electric Bills: No Difficulty Paying for Meds: No Currently Unemployed: No Education: High School Diploma/GED Difficulty w/ Childcare or Family Care: No Living arrangements: with family Occupation/Education: student Additional occupation/education comments: [employer] Gender identity (if verbalized by the patient): Male Spiritual care concerns: No Agree to blood products: Yes Meds Home Medications and Allergies Home Medications Medication Instructions Recorded Confirmed Type multivitamin (Daily Multi-Vitamin 1 tablet PO DAILY 09/13/22 05/05/24 History tablet) loratadine 10 mg tablet (Claritin) 10 mg PO DAILY PRN Allergy Symptoms 11/07/23 05/05/24 History omeprazole 20 mg capsule,delayed 20 mg PO DAILY 04/30/24 05/05/24 History release ubrogepant 50 mg tablet (Ubrelvy) 50 mg PO ONCE PRN Migraine 05/05/24 05/05/24 Rx Headache #10 tabs Allergies Allergy/AdvReac Type Severity Reaction Status Date / Time aspartame Allergy Severe SHUT LIVER Verified 05/05/24 09:53 DOWN cefdinir [From Omnicef] Allergy Intermediate Rash Verified 05/05/24 09:53 latex Allergy Mild Hives Verified 05/05/24 09:53 sumatriptan AdvReac Mild numbness Uncoded 05/05/24 09:53 tongue and neck Vital Signs Vital Signs - 24 hr 05/05/24 09:54 Temperature 96.9 F L Pulse Rate 63 Respiratory Rate 20 Blood Pressure 117/67 Pulse Oximetry 100 Oxygen Delivery Room Air Exam Const: General: comfortable and no acute distress HENMT: Face/Nose/Sinus: Normal nares present Eyes: General: appearance normal, both eyes and all related structures Neck: Neck: no JVD Resp: Auscultation: clear to auscultation bilaterally Cardio: Rate: regular rate Rhythm: regular rhythm GI: Inspection: non-distended GI Palp: Yes Soft to palpation Skin: General skin exam: normal color Neuro: General: gait normal Speech: normal speech Extrem: General: normal to inspection Psych: Mental Status: mental status grossly normal Assessment and Plan Assessment and plan (1) Eosinophilic esophagitis: Code(s): K20.0 - Eosinophilic esophagitis Status: Acute Assessment and Plan: egd with bx probably will need dupixent- will need follow-up in office now using ppi (2) Dysphagia: Code(s): R13.10 - Dysphagia, unspecified Status: Acute
[2024-05-05 11:13] VITALS: BP 92/38; PULSE 72; RESP 18; O2SAT 100
[2024-05-05 11:23] VITALS: BP 97/58; PULSE 63; RESP 16; O2SAT 100
[2024-05-05 11:33] VITALS: BP 95/58; PULSE 62; RESP 20; O2SAT 100
== END 2024-05-05 11:35 | disposition home or self-care (01) ==
PROVIDERS: PCP Family Medicine; Referring Provider Nurse Practitioner Family; Visit Provider Internal Medicine Gastroenterology
PROC: 0DJ08ZZ Inspection of Upper Intestinal Tract, Via Natural or Artificial Opening Endoscopic (ICD-10-PCS; CPT 43235; principal; 2024-05-05 11:00)
DX: K20.0 Eosinophilic esophagitis (principal); K22.2 Esophageal obstruction; K58.2 Mixed irritable bowel syndrome
CPT/HCPCS: 43249; 43239; 88305; C1726; J2704; J7120

== ENCOUNTER 2024-07-10 13:53 | Emergency (ER) | payer OTHER, SELFPAY ==
[2024-07-10 14:02] VITALS: BP 120/67; PULSE 85; RESP 20; TEMP 36.9; O2SAT 99
--- NOTE | 2024-07-10 14:32 | ED.URI ---
HPI - URI/Sore Throat General Chief Complaint: Upper Respiratory Infection Stated Complaint: SORE THROAT Time Seen by Provider: 07/10/24 14:22 Source: patient and RN notes reviewed Mode of arrival: ambulatory Limitations: no limitations History of Present Illness HPI Narrative: Patient presents today complaining of sore throat. 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 States pain in his throat worsened this morning. Also has some postnasal drainage. Denies any additional symptoms to include cough, congestion, fever. Currently rates his pain 8/10 and has been taking Zyrtec, Sudafed, and Tylenol with mild relief. Related Data Home Medications Medication Instructions Recorded Confirmed multivitamin (Daily Multi-Vitamin 1 tablet PO DAILY 09/13/22 05/13/24 tablet) loratadine 10 mg tablet (Claritin) 10 mg PO DAILY PRN Allergy Symptoms 11/07/23 05/13/24 Allergies Allergy/AdvReac Type Severity Reaction Status Date / Time aspartame Allergy Severe SHUT LIVER Verified 07/10/24 14:32 DOWN cefdinir [From Omnicef] Allergy Intermediate Rash Verified 07/10/24 14:32 latex Allergy Mild Hives Verified 07/10/24 14:32 sumatriptan AdvReac Mild numbness Uncoded 07/10/24 14:32 tongue and neck Review of Systems Review of Systems: CONSTITUTIONAL: Denies body aches, fever, chills, or sweats. EYES: Denies visual changes, redness, or discharge. ENT: Denies rhinorrhea, congestion, or otalgia.+ sore throat, postnasal drip CARDIOVASCULAR: Denies chest pain, palpitations, or edema. RESPIRATORY: Denies cough or dyspnea. GASTROINTESTINAL: Denies abdominal pain, nausea, vomiting, or diarrhea. GENITOURINARY: Denies dysuria or hematuria. SKIN: Denies rash, itching, or wounds. MUSCULOSKELETAL: Denies back pain, joint pain, or myalgia. NEUROLOGIC: Denies headache, numbness, tingling, or weakness. PSYCH: Denies depression or anxiety. [facility] Past Medical History Medical History Dysphagia Eosinophilic esophagitis GERD (gastroesophageal reflux disease) Irritable bowel syndrome with constipation and diarrhea Migraine Seasonal allergies Surgical History Surgical History History of tonsillectomy S/P scrotal varicocelectomy (~11/2021) left Family History Family History Other Family history non-contributory Social History Social History (Reviewed 07/10/24 @ 14:35 by Danii Sparrow, [facility], ) Smoking status: Never smoker Alcohol intake: current Substance use: never Substance use type: does not use Lack of Transportation: No Lack of Food: Never True Current Housing: I Have Housing Concerned About Future Housing: No Difficulty Paying Gas/Electric Bills: No Difficulty Paying for Meds: No Currently Unemployed: No Education: High School Diploma/GED Difficulty w/ Childcare or Family Care: No Living arrangements: with family Occupation/Education: student Additional occupation/education comments: [employer] Gender identity (if verbalized by the patient): Male Spiritual care concerns: No Agree to blood products: Yes Comments At time of signature, I have reviewed and agree with nursing past medical, surgical, social and family history unless otherwise noted. Please see nursing chart for further information. There is no relevant family history pertinent to the presenting complaint Exam Narrative: GENERAL: Well-appearing, well-nourished, and in no acute distress. HEAD: Normocephalic, atraumatic. EYES: EOMI. No redness or drainage. Conjunctivae normal. ENT: Mucous membranes pink and moist. Nares clear. No rhinorrhea. TMs normal bilaterally. Throat normal with some mild white postnasal drainage. Uvula midline. NECK: Normal AROM. Supple. No lymphadenopat
[2024-07-10 14:40] LABS: EDSTREPNEGPOS1 Presumptive Negative
== END 2024-07-10 14:46 | disposition home or self-care (01) ==
PROVIDERS: Emergency Provider Nurse Practitioner; PCP Family Medicine
DX: J02.9 Acute pharyngitis, unspecified (principal); K20.0 Eosinophilic esophagitis; K21.9 Gastro-esophageal reflux disease without esophagitis
CPT/HCPCS: 87081; 87880; 99213; G0463

== ENCOUNTER 2025-01-22 11:39 | Outpatient (CLI) | payer OTHER, SELFPAY ==
--- OUTSIDE RECORDS SUMMARY | 2025-01-22 11:59 | XMS_ITS | Referral Summary ---
Author Organization [facility] [employer] Address [address] [place] [address] Care Team Providers Care Replenisher Name Role Phone Unavailable Primary Care Provider Unavailabl e Source Comments [facility],non-owned Affiliates and Associated Physician Practices is amultiple site organization consisting of ambulatory clinics and hospital sitesin [place], [place], [place] and [place]. This disclosure is being madepursuant to the Care Everywhere program and may not contain all information available regarding this patient. Last updated 18.[facility] [employer] Social History Tobacco Use Types Packs/Day Years Used Date Smoking Tobacco: Never Assessed Sex and Gender Information Value Date Recorded Sex Assigned at Not on file Gender Identity Not on file Sexual Orientation Not on file Plan of Treatment Not on file NICOLETTE LONDON Personal/Family [address] [place] [address] NICOLETTE LONDON Personal/Family [address] [place] [address] NICOLETTE LONDON Personal/Family [address] [place] [address]
--- OUTSIDE RECORDS SUMMARY | 2025-01-22 11:59 | XMS_ITS | Clinical Summary ---
Author Organization [facility] Address [address] [address] Phone Care Team Providers Care Steel Fabricator Name Role Phone Love Stallings MD Primary Care Provider [phone] Allergies Active Allergy Reactions Criticality Noted Date Comments Latex Rash 11/19/2019 Tncpi-Chbkxsb-Egmiay Diarrhea 11/19/2019 Medications Multiple Vitamin (MULTI-VITAMIN DAILY PO) Take by mouth. Active polyethylene glycol (MIRALAX) Powder Take 17 g by mouth daily. 17 g = 1 scoop. Dissolve in 4 -8 oz of water or other liquid. Active omeprazole (PRILOSEC) 20 MG CAPSULE DELAYED RELEASE Take 1 Cap by mouth daily. 90 Cap 3 11/19/2019 Active Family History Medical History Relation Name Comments Heart Disease Maternal Grandfather Lung Cancer Maternal Grandfather Crohn's Disease Maternal Grandmother Ulcerative Colitis Maternal Grandmother Relation Name Status Comments Maternal Grandfather Maternal Grandmother Social History Tobacco Use Types Packs/Day Years Used Date Smoking Tobacco: Never Smokeless Tobacco: Never Tobacco Cessation:Counseling Given: No Alcohol Use Standard Drinks/Week Comments Never 0 (1 standard drink = 0.6 oz pur e alcohol) AUDIT-C Answer Date Recorded Frequency of Alcohol Consumption Never 11/19/2019 Average Number of Drinks Not on file 019 Frequency of Binge Drinking Not on file 11/01 Sex and Gender Information Value Date Recorded Sex Assigned at Not on file Legal Sex Male 3:24 PM CDT Gender Identity Not on file Sexual Orientation Not on file Occupation Industry Job Start Date Job End Date student Not on file Not on file Not on file Last Filed Vital Signs Vital Sign Reading Time Taken Comments Blood Pressure 110/72 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 Pulse 64 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 Temperature 36.4 C (97.5 F) 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 Respiratory Rate 14 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 Oxygen Saturation 97% 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 Inhaled Oxygen Concentration - - Weight 73.9 kg (163 lb) 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 Height 172.7 cm (5' 8 ) 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 Body Mass Index 24.78 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 Plan of Treatment Health Maintenance Due Date Last Done Comments Hepatitis C Virus (HCV) Screening 2000 Influenza Immunization (#1) 08/02/202407/02, 09/26/2010, 07/06/2009, Additional history exists SARS-COV-2 Immunization ( season) 2024 05/11/2022, 05/08/2021, 04/10/2021 Respiratory Syncytial Virus (RSV) Immunization (Adult) (1 - 1-dose 75+ series) 2075 Hepatitis B Immunization Completed 001, 2000, 2000 Pneumococcal Immunization Combined Aged Out 09/01/2001, 05/30/2001, 03/03/2001, Additional history exists No longer eligible based on patient's age to complete this topic DTaP/Tdap/Td Immunization Discontinued 2010, 04/05/2006, 12/12/2001, Additional history exists TdaP Immunization Completed 07/11/2011 Human Papillomavirus (HPV) Immunization Completed 01/18/2016, 09/16/2015, 07/11/2015 Meningococcal Immunization (ACWY) Completed 07/15/2017, 07/09/2012 Meningococcal B Immunization Discontinued 09/29/2018, 07/16/2018 Rotavirus Immunization Aged Out No lo nger eligible based on patient's age to complete this topic Care Teams Steel Fabricator Relationship Specialty Start Date End Date Love Stallings MD [address] [place] [address] PCP - General Pediatrics 11/19/19
--- OUTSIDE RECORDS SUMMARY | 2025-01-22 11:59 | XMS_ITS | Patient Health Summary ---
Author Organization [facility] Address [address] [place] [address] Care Team Providers Care Investigative Research Specialist Name Role Phone Unavailable Primary Care Provider Unavailabl e Note from [facility],non-owned Affiliates and Associated Physician Practices is amultiple site organization consisting of ambulatory clinics and hospital sitesin [place], [place], [place] and [place]. This disclosure is being madepursuant to the Care Everywhere program and may not contain all information available regarding this patient. Last updated 18.[facility] Social History Tobacco Use Types Packs/Day Years Used Date Smoking Tobacco: Never Assessed Sex and Gender Information Value Date Recorded Sex Assigned at Not on file Gender Identity Not on file Sexual Orientation Not on file
--- OUTSIDE RECORDS SUMMARY | 2025-01-22 11:59 | XMS_ITS | Clinical Summary ---
Author Organization [facility] [employer] Address [address] [address] Care Team Providers Care Evaluation Engineer Name Role Phone Unavailable Primary Care Provider Unavailabl e Source Comments [facility],non-owned Affiliates and Associated Physician Practices is amultiple site organization consisting of ambulatory clinics and hospital sitesin [place] and [place]. This disclosure is being madepursuant to the Care Everywhere program and may not contain all information available regarding this patient. Last updated 18.[facility] [employer] Social History Tobacco Use Types Packs/Day Years Used Date Smoking Tobacco: Never Assessed Sex and Gender Information Value Date Recorded Sex Assigned at Not on file Gender Identity Not on file Sexual Orientation Not on file Plan of Treatment Health Maintenance Due Date Last Done Comments HIV SCREENING 2015 HPV VACCINE (1 - Male 3-dose series) 2015 HEPATITIS C SCREENING 08/23/2018 DTAP/TDAP/TD VACCINES (1 - Tdap) 2019 HEPATITIS B VACCINE (1 of 3 - 19+ 3-dose series) 2019 COVID-19 VACCINE ( - 2023-2 5 season) 2024 INFLUENZA VACCINE (#1) 2024 DEPRESSION SCREENING 12/02/2024 ZOSTER VACCINE (1 of 2) 2050 HIB VACCINE Aged Out No longer eligi ble based on patient's age to complete this topic MENINGOCOCCAL (Group B) VACCINE Aged Out No longer eligible based on patient's age to complete this topic MENINGOCOCCAL VACCINE Aged Out No jarett ras eligible based on patient's age to complete this topic PNEUMOCOCCAL VACCINE Aged Out No long er eligible based on patient's age to complete this topic NICOLETTE LONDON Personal/Family [address] [place] [address] NICOLETTE LONDON Personal/Family [address] [place] [address] NICOLETTE LONDON Personal/Family [address] [place] [address]
--- OUTSIDE RECORDS SUMMARY | 2025-01-22 11:59 | XMS_ITS | Clinical Summary ---
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 Gender Identity Not on file Sexual Orientation Not on file Plan of Treatment Health Maintenance Due Date Last Done Comments Annual Physical 2003 HPV Vaccines (1 - Male 3-dos e series) 2015 Hepatitis C 2018 DTaP, Tdap and Td Vaccines ( 1 - Tdap) 2019 Hepatitis B Vaccines (1 of 3 - 19+ 3-dose series) 2019 COVID-19 Vaccine ( - 2023-2 5 season) 2024 Influenza Adult (#1) 2024 Meningococcal B Vaccine Aged Out No l onger eligible based on patient's age to complete this topic Meningococcal Vaccine Aged Out No jarett ras eligible based on patient's age to complete this topic Pneumococcal Vaccine: Pediat rics (0 to 5 Years) and At-Risk Patients (6 to 64 Years) Aged Out No longer eligible b ased on patient's age to complete this topic RSV Immunizations Under 20 Months Aged Out No longer eligible based on patient's age to complete this topic Insurance [employer] Care Teams Construction Project Assistant Relationship Specialty Start Date End Date None, Provider, PCP - General 10/30/21
[2025-01-22 14:56] LABS: Basophils Absolute Auto 0.1 K/mm3 (0.0-0.1); Basophils Percent Auto 1.1 % (0.2-1.2); Eosinophils Absolute Auto 0.1 K/mm3 (0-0.3); Eosinophils Percent Auto 1.1 % (0-4.4); Hematocrit 46.8 % (42.0-52.0); Hemoglobin 15.3 g/dL (14.0-18.0); Immature Granulocyte Absolute 0.02 K/mm3 (0.00-0.031); Immature Granulocyte Percent A 0.3 % (0-0.5); Lymphocytes Absolute Auto 2.42 K/mm3 (0.9-3.2); Mean Corpuscular HGB Conc 32.7 g/dl (32-36); Mean Corpuscular Hemoglobin 29.3 pg (26-34); Mean Corpuscular Volume 89.5 fl (80-100); Monocytes Absolute Auto 0.5 K/mm3 (0.1-0.6); Monocytes Percent Auto 8.2 % (2.6-8.5); Neutrophils Absolute Auto 3.3 K/mm3 (1.3-6.7); Neutrophils Percent Auto 51.3 % (45.5-73.1); Platelet Count Result 316 k/mm3 (150-375); Red Blood Count 5.23 M/mm3 (4.6-6.20); Red Cell Distribution Width 12.4 % (11.5-14.5); White Blood Count 6.4 K/mm3 (4.5-10.0)
[2025-01-22 15:43] LABS: Vitamin D 25 Hydroxy 39.7 ng/mL
[2025-01-22 15:47] LABS: Hemoglobin A1C 5.4 % (<5.7)
[2025-01-22 16:06] LABS: Alanine Aminotransferase 64 U/L (6-50); Albumin Level 4.5 g/dL (3.5-5.1); Alkaline Phosphatase 70 U/L (38-126); Anion Gap 8 mmol/L (4-12); Aspartate Amino Transferase 46 U/L (17-59); Bilirubin,Total 1.1 mg/dL (0.2-1.3); Blood Urea Nitrogen 19 mg/dL (9-20); Calcium 9.4 mg/dL (8.4-10.2); Carbon Dioxide 29 mmol/L (22-30); Chloride 102 mmol/L (98-107); Cholesterol 200 mg/dL (0-200); Estimated Glomerular Filt Rate > 60; Glucose 77 mg/dL (65-110); HDL Direct 53 mg/dL; Potassium 4.3 mmol/L (3.4-5.0); Sodium 139 mmol/L (137-145); Triglycerides 92 mg/dL (<150)
[2025-01-22 16:28] LABS: LDL Cholesterol Direct 105 mg/dL
== END 2025-01-22 11:40 | disposition home or self-care (01) ==
LOC: ANHGOSHLAB 11:40
PROVIDERS: PCP Family Medicine; Visit Provider Family Medicine
DX: Z00.00 Encounter for general adult medical examination without abnormal findings (principal); Z79.899 Other long term (current) drug therapy; Z13.220 Encounter for screening for lipoid disorders; R73.9 Hyperglycemia, unspecified; E53.8 Deficiency of other specified B group vitamins; K20.0 Eosinophilic esophagitis; G43.919 Migraine, unspecified, intractable, without status migrainosus; E55.9 Vitamin D deficiency, unspecified
CPT/HCPCS: 36415; 80053; 80061; 82306; 82607; 83036; 84443; 85025

== ENCOUNTER 2025-02-05 11:30 | Emergency (ER) | payer OTHER, SELFPAY ==
[2025-02-05 11:50] VITALS: BP 131/87; PULSE 87; RESP 16; TEMP 36.7; O2SAT 99
--- NOTE | 2025-02-05 12:20 | ED_ITS ---
HPI - URI/Sore Throat General Chief Complaint: Upper Respiratory Infection Stated Complaint: SORE THROAT/DRAINAGE/FEVER/CHILLS History of Present Illness HPI Narrative: 24-year-old male presented for complaint sore throat, headache, body aches, nasal drainage, cough, fever/chills. onset 2 days. Says he noticed white patches in the throat And temp up to 100.4. Denies sob, wheezing, n/v/d. Taking Sudafed and Zyrtec. Related Data Home Medications ?Medication ?Instructions ?Recorded ?Confirmed ?Last Taken ?Type multivitamin (Daily Multi-Vitamin 1 tablet PO DAILY 09/13/22 02/05/25 05/04/24 History tablet) loratadine 10 mg tablet (Claritin) 10 mg PO DAILY PRN Allergy Symptoms 11/07/23 02/05/25 05/04/24 History Allergies Allergy/AdvReac Type Severity Reaction Status Date / Time aspartame Allergy Severe SHUT LIVER Verified 12/29/24 10:56 DOWN cefdinir (From Omnicef) Allergy Intermediate Rash Verified 12/29/24 10:56 latex Allergy Mild Hives Verified 12/29/24 10:56 sumatriptan AdvReac Mild numbness Uncoded 12/29/24 10:56 tongue and neck Review of Systems Review of Systems: per [facility] Past Medical History Medical History Dysphagia Irritable bowel syndrome with constipation and diarrhea Seasonal allergies Migraine Eosinophilic esophagitis GERD (gastroesophageal reflux disease) Surgical History Surgical History S/P scrotal varicocelectomy (~11/2021) left History of tonsillectomy Family History Family History Other Family history non-contributory Social History Social History Smoking status: Never smoker Alcohol intake: current Substance use: never Substance use type: does not use Lack of Transportation: No Lack of Food: Never True Current Housing: I Have Housing Concerned About Future Housing: No Difficulty Paying Gas/Electric Bills: No Difficulty Paying for Meds: No Currently Unemployed: No Education: High School Diploma/GED Difficulty w/ Childcare or Family Care: No Living arrangements: with family Occupation/Education: student Additional occupation/education comments: [employer] Gender identity (if verbalized by the patient): Male Spiritual care concerns: No Agree to blood products: Yes Exam Narrative: GENERAL: well-appearing, no acute distress. EYES: conjunctivae clear ENT: Mucous membranes moist. TM pearly byrd with normal light reflex bilaterally; no tragal tenderness. Oropharynx erythematous without lesions. postnasal drainage noted.Tonsils not enlarged and without exudate. No drooling, no hoarseness, no trismus, uvula midline. No tripod positioning, hot potato voice, or soft palate swelling. NECK: Supple. No lymphadenopathy CHEST: Clear to auscultation, breath sounds equal. No respiratory distress, speaks in full sentences. HEART: Regular rate and rhythm. No murmur heard. SKIN: Warm, dry, no rash. NEURO: Alert and oriented x3. Course Course Emergency Course: Patient is aware of diagnosis, understands and agrees to treatment plan. Anticipatory guidance given. Patient agrees to follow-up as directed and is aware of reasons to seek care at the emergency department. Portions of this record may have been created with voice recognition software Level of Care: Express Care Visit Vital Signs Vital signs: Vital Signs Temperature 98.1 F 02/05/25 11:50 Pulse Rate 87 02/05/25 11:50 Respiratory Rate 16 02/05/25 11:50 Blood Pressure 131/87 02/05/25 11:50 Pulse Oximetry 99 02/05/25 11:50 Temperature 98.1 F 02/05/25 11:50 Pulse Rate 87 02/05/25 11:50 Respiratory Rate 16 02/05/25 11:50 Blood Pressure 131/87 02/05/25 11:50 Pulse Oximetry 99 02/05/25 11:50 MDM - URI/Sore Throat MDM Narrative Medical decision making narrative: negative flu, COVID, strep result reviewed with pt. Advise supportive treatments. Patient is appropriate for outpatient treatment and follow-up. Differential Diagnosis Differential diagnosis: Likely upper respiratory infection, viral infection and pharyngitis Discharge Plan Discharge Clinical Impression: Upper respiratory infection Patient Disposition: Home, Self-Care Condition: Stable Instructions: Antibiotic Form Additional Instructions: Rapid strep swab was negative today You will be notified in a few days if the culture comes back positive for strep, and appropriate antibiotics will be called in at that time. if symptoms are due to a viral illness, it is not treated with antibiotics. Viral symptoms can be present for up to 10-14 days. Recommendations Flonase spray and Zyrtec for sinus congestion Cough syrup may cause drowsiness; avoid driving or take it at night time. Tylenol every 8 hours as needed for pain/fever Soft foods, cool liquids, warm tea. Gargle with warm saltwater twice a day. Chloraseptic spray and throat lozenges. Rest and stay hydrated. --Follow up with your PCP --Go to the ER immediately if you cannot swallow your saliva, trouble breathing/wheezing, throat swelling, pain is persistent and severe Patient Language: Citizen Of [place] Prescriptions: No Action loratadine [Claritin] 10 mg tablet 10 mg PO DAILY PRN (Reason: Allergy Symptoms) multivitamin [Daily Multi-Vitamin] Tablet 1 tablet PO DAILY Ubrelvy 50 mg tablet 50 mg PO ONCE PRN (Reason: Migraine Headache) Qty: 10 5RF Rx Instructions: as a single dose; may repeat once in >=2 hours after first dose if needed omeprazole 20 mg capsule,delayed release(DR/EC) 20 mg PO DAILY Qty: 30 11RF Dupixent Pen 300 mg/2 mL pen injector 300 mg subcut WEEKLY 28 Days Qty: 8 12RF Follow-up/Referrals: Serena Gallagher MD [Primary Care Provider] - Time of Disposition: 12:26
[2025-02-05 12:44] LABS: EDCOVIDSCREEN Negative (Negative); EDINFLUASCREEN Negative (Negative); EDINFLUBSCREEN Negative (Negative); EDSTREPNEGPOS1 Negative (Negative)
== END 2025-02-05 12:31 | disposition home or self-care (01) ==
PROVIDERS: Emergency Provider Nurse Practitioner Family; PCP Family Medicine
DX: J06.9 Acute upper respiratory infection, unspecified (principal); Z20.822 Contact with and (suspected) exposure to COVID-19
CPT/HCPCS: 87081; 87426; 87804; 87880; 99213; G0463

== ENCOUNTER 2025-02-08 13:03 | Emergency (ER) | payer OTHER, SELFPAY ==
[2025-02-08 13:10] VITALS: BP 130/82; PULSE 79; RESP 18; TEMP 36.8; O2SAT 98
--- NOTE | 2025-02-08 13:20 | ED.URI ---
HPI - URI/Sore Throat General Chief Complaint: Upper Respiratory Infection Stated Complaint: Nasal infection/Congestion History of Present Illness HPI Narrative: 24 y/o male presented for c/o nasal congestion for 5 days. Says he has had nosebleeds for the past 2 days, which he describes as some blood on tissue when blowing his nose. Denies trickling nosebleed. Pt was seen in clinic 02/05, advised he has a viral infection. Taking antihistamine. Denies sob, wheezing, n/v/d/f/c. Related Data Home Medications ?Medication ?Instructions ?Recorded ?Confirmed ?Last Taken ?Type multivitamin (Daily Multi-Vitamin 1 tablet PO DAILY 09/13/22 02/08/25 05/04/24 History tablet) loratadine 10 mg tablet (Claritin) 10 mg PO DAILY PRN Allergy Symptoms 11/07/23 02/08/25 05/04/24 History Allergies Allergy/AdvReac Type Severity Reaction Status Date / Time aspartame Allergy Severe SHUT LIVER Verified 02/08/25 13:10 DOWN cefdinir (From Omnicef) Allergy Intermediate Rash Verified 02/08/25 13:10 latex Allergy Mild Hives Verified 02/08/25 13:10 sumatriptan AdvReac Mild numbness Uncoded 02/08/25 13:10 tongue and neck Review of Systems Review of Systems: CONSTITUTIONAL: Denies body aches, fever, chills, or sweats. EYES: Denies visual changes, redness, or discharge. ENT: reports rhinorrhea, congestion, denies sore throat otalgia. CARDIOVASCULAR: Denies chest pain, palpitations, or edema. RESPIRATORY: Denies dyspnea. GASTROINTESTINAL: Denies abdominal pain, nausea, vomiting, or diarrhea. NEUROLOGIC: Denies headache PMFSH Past Medical History Medical History Dysphagia Irritable bowel syndrome with constipation and diarrhea Seasonal allergies Migraine Eosinophilic esophagitis GERD (gastroesophageal reflux disease) Surgical History Surgical History S/P scrotal varicocelectomy (~11/2021) left History of tonsillectomy Family History Family History Other Family history non-contributory Social History Social History Smoking status: Never smoker Alcohol intake: current Substance use: never Substance use type: does not use Lack of Transportation: No Lack of Food: Never True Current Housing: I Have Housing Concerned About Future Housing: No Difficulty Paying Gas/Electric Bills: No Difficulty Paying for Meds: No Currently Unemployed: No Education: High School Diploma/GED Difficulty w/ Childcare or Family Care: No Living arrangements: with family Occupation/Education: student Additional occupation/education comments: [employer] Gender identity (if verbalized by the patient): Male Spiritual care concerns: No Agree to blood products: Yes Exam Narrative: GENERAL: well-appearing EYES: conjunctivae clear ENT: Mucous membranes moist. left nare with erythematous lesion medially, no active bleeding. TM pearly byrd with normal light reflex bilaterally; no tragal tenderness. Oropharynx erythematous without lesions. Tonsils not enlarged and without exudate. No drooling, no hoarseness, no trismus, uvula midline. No tripod positioning, hot potato voice, or soft palate swelling. NECK: Supple. No lymphadenopathy CHEST: Clear to auscultation, breath sounds equal. HEART: Regular rate and rhythm. SKIN: Warm, dry, no rash. NEURO: Alert and oriented x3. Course Course Emergency Course: Patient is aware of diagnosis, understands and agrees to treatment plan. Anticipatory guidance given. Patient agrees to follow-up as directed and is aware of reasons to seek care at the emergency department. Portions of this record may have been created with voice recognition software Level of Care: Express Care Visit Vital Signs Vital signs: Vital Signs Temperature 98.2 F 02/08/25 13:10 Pulse Rate 79 02/08/25 13:10 Respiratory Rate 18 02/08/25 13:10 Blood Pressure 130/82 02/08/25 13:10 Pulse Oximetry 98 02/08/25 13:10 Oxygen Delivery Room Air 02/08/25 13:10 Temperature 98.2 F 02/08/25 13:10 Pulse Rate 79 02/08/25 13:10 Respiratory Rate 18 02/08/25 13:10 Blood Pressure 130/82 02/08/25 13:10 Pulse Oximetry 98 02/08/25 13:10 Oxygen Delivery Room Air 02/08/25 13:10 MDM - URI/Sore Throat MDM Narrative Medical decision making narrative: Discussed physical exam findings. Advised supportive measures and signs/symptoms to go to the ER. Pt is appropriate for outpt treatment and f/u. Differential Diagnosis Differential diagnosis: Likely upper respiratory infection, sinusitis, viral infection and other (epistaxis) Discharge Plan Discharge Clinical Impression: Upper respiratory infection Patient Disposition: Home, Self-Care Condition: Stable Instructions: Antibiotic Form, Nosebleed (ED) Additional Instructions: Recommendations: Flonase spray and Zyrtec (or Claritin/Debbi) over the counter Cough syrup may cause drowsiness; avoid driving or take it at night time. Tylenol 1000mg every 8 hours as needed for pain Symptomatic treatment includes: rest, fluids, and increase humidity of the air at home. For a nosebleed: Instill Afrin (oxymetazoline) at the onset of nosebleed then apply direct pressure to the bridge of the nose for 10 minutes (using clamp if possible) leaning forward not tilting head backward apply ice to bridge of nose Sleep using a humidifer Avoid trauma/nose blowing/sneezing Avoid NSAIDs (advil ibuprofen aleve motrin) Use mupirocin ointment as directed Follow up with ENT, call tomorrow to schedule an appointment Follow up with your primary care provider in 1 week, call tomorrow to schedule an appointment Go to the ER for worsening symptoms or concerns Patient Language: Indonesian Prescriptions: New mupirocin 2 % ointment 1 applic topical BID 7 Days Qty: 22 0RF amoxicillin-pot clavulanate 875-125 mg tablet 1 tablet PO Q12H 5 Days Qty: 10 0RF No Action loratadine [Claritin] 10 mg tablet 10 mg PO DAILY PRN (Reason: Allergy Symptoms) multivitamin [Daily Multi-Vitamin] Tablet 1 tablet PO DAILY Ubrelvy 50 mg tablet 50 mg PO ONCE PRN (Reason: Migraine Headache) Qty: 10 5RF Rx Instructions: as a single dose; may repeat once in >=2 hours after first dose if needed omeprazole 20 mg capsule,delayed release(DR/EC) 20 mg PO DAILY Qty: 30 11RF Dupixent Pen 300 mg/2 mL pen injector 300 mg subcut WEEKLY 28 Days Qty: 8 12RF Follow-up/Referrals: Serena Gallagher MD [Primary Care Provider] - Time of Disposition: 13:28
== END 2025-02-08 13:32 | disposition home or self-care (01) ==
PROVIDERS: Emergency Provider Nurse Practitioner Family; PCP Family Medicine
DX: J06.9 Acute upper respiratory infection, unspecified (principal); K20.0 Eosinophilic esophagitis; K21.9 Gastro-esophageal reflux disease without esophagitis
CPT/HCPCS: 99213; G0463

== ENCOUNTER 2025-04-21 14:22 | Outpatient (CLI) | payer OTHER, SELFPAY ==
--- OUTSIDE RECORDS SUMMARY | 2025-04-21 14:30 | XMS_ITS | Clinical Summary ---
Author Organization [facility] Address [address] 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 This disclosure is being madepursuant to the Care Everywhere program and may not contain all information available regarding this patient. 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 Gender Identity Not on file Sexual Orientation Not on file Plan of Treatment Health Maintenance Due Date Last Done Comments HIV SCREENING 2015 HPV VACCINE (1 - Male 3-dose series) 2015 HEPATITIS C SCREENING 08/23/2018 DTAP/TDAP/TD VACCINES (1 - Tdap) 2019 HEPATITIS B VACCINE (1 of 3 - 19+ 3-dose series) 2019 COVID-19 VACCINE (1 - 2023-2 5 season) 2024 DEPRESSION SCREENING 12/02/2024 INFLUENZA VACCINE (Season Ended) 2025 ZOSTER VACCINE (1 of 2) 2050 HIB VACCINE Aged Out No longer eligi ble based on patient's age to complete this topic MENINGOCOCCAL (Group B) VACC INE SHARED DECISION-MAKING Aged Out No longer eligibl e based on patient's age to complete this topic MENINGOCOCCAL GROUPS A/C/Y/W VACCINE Aged Out No longer eligible b ased on patient's age to complete this topic PNEUMOCOCCAL VACCINE Aged Out No long er eligible based on patient's age to complete this topic Insurance [facility] Address: [address] [place] [address] [employer]ETNA AETNA * Guarantor: NICOLETTE LONDON Account Type Relation to Patient Date of Phone Billing Address Personal/Family [address] [place] [address] SELF PAY NO INSURANCE Member Subscriber Plan / Payer (Ef fective for All Dates) Name:Nicolette London Member ID:Not on file Relation to Subscriber:Not on file Name:NICOLETTE LONDON Subscriber ID:Not on file (Home) Address: [address] [place] [address] Payer ID:Not on file Group ID:Not on file Type:Self Pay Address: [place], [place] CIG [facility] Address: [facility] [address] [place] [address] * Guarantor: NICOLETTE LONDON Account Type Relation to Patient Date of Phone Billing Address Personal/Family [address] [place] [address] [employer]IG[employer] SELF PAY NO INSURANCE Member Subscriber Plan / Payer (Ef fective for All Dates) Name:Nicolette London Member ID:Not on file Relation to Subscriber:Not on file Name:NICOLETTE LONDON Subscriber ID:Not on file (Home) Address: [address] [place] [address] Payer ID:Not on file Group ID:Not on file Type:Self Pay Address: [place], [place] * Guarantor: NICOLETTE LONDON Account Type Relation to Patient Date of Phone Billing Address Personal/Family [address] [place] [address] [employer]IG[employer] SELF PAY NO INSURANCE Member Subscriber Plan / Payer (Ef fective for All Dates) Name:Nicolette London Member ID:Not on file Relation to Subscriber:Not on file Name:NICOLETTE LONDON Subscriber ID:Not on file (Home) Address: [address] [place] [address] Payer ID:Not on file Group ID:Not on file Type:Self Pay Address: [place], [place]
--- OUTSIDE RECORDS SUMMARY | 2025-04-21 14:30 | XMS_ITS | Clinical Summary ---
Author Organization [facility] Address [address] [address] Phone Care Team Providers Care J2Ee Android Developer Name Role Phone Love Stallings MD Primary Care Provider [phone] Allergies Active Allergy Reactions Criticality Noted Date Comments Latex Rash 11/19/2019 Qpgst-Mrshfei-Lfopjo Diarrhea 11/19/2019 Medications Multiple Vitamin (MULTI-VITAMIN DAILY [...] Comments Blood Pressure 110/72 11/19/2019 1:31 PM PROPERTY ACCOUNTANT Pulse 64 11/19/2019 1:31 PM PROPERTY ACCOUNTANT Temperature 36.4 C (97.5 F) 11/19/2019 1:31 PM PROPERTY ACCOUNTANT Respiratory Rate 14 11/19/2019 1:31 PM PROPERTY ACCOUNTANT Oxygen Saturation 97% 11/19/2019 1:31 PM PROPERTY ACCOUNTANT Inhaled Oxygen Concentration - - Weight 73.9 kg (163 lb) 11/19/2019 1:31 PM PROPERTY ACCOUNTANT Height 172.7 cm (5' 8 ) 11/19/2019 1:31 PM PROPERTY ACCOUNTANT Body Mass Index 24.78 11/19/2019 1:31 PM PROPERTY ACCOUNTANT Plan of Treatment Health Maintenance Due Date [...] age to complete this topic Care Teams J2Ee Android Developer Relationship Specialty Start Date End Date Love Stallings MD [address] [facility] [address] [place] [address] PCP - General Pediatrics 11/19/19
[2025-04-21 19:23] LABS: Alanine Aminotransferase 40 U/L (6-50); Albumin Level 4.7 g/dL (3.5-5.1); Alkaline Phosphatase 63 U/L (38-126); Anion Gap 9 mmol/L (4-12); Aspartate Amino Transferase 51 U/L (17-59); Bilirubin,Total 0.6 mg/dL (0.2-1.3); Blood Urea Nitrogen 17 mg/dL (9-20); Calcium 9.3 mg/dL (8.4-10.2); Carbon Dioxide 28 mmol/L (22-30); Chloride 101 mmol/L (98-107); Estimated Glomerular Filt Rate > 60; Glucose 84 mg/dL (65-110); Potassium 4.4 mmol/L (3.4-5.0); Sodium 138 mmol/L (137-145)
== END 2025-04-21 14:23 | disposition home or self-care (01) ==
LOC: ANHGOSHLAB 14:23
PROVIDERS: PCP Family Medicine; Visit Provider Family Medicine
DX: R74.01 Elevation of levels of liver transaminase levels (principal)
CPT/HCPCS: 36415; 80053

== ENCOUNTER 2025-04-23 08:53 | Outpatient (CLI) | payer OTHER, SELFPAY ==
--- NOTE | ~2025-04-23 | CT_ITS ---
Non-contrast Head CT History: Migraine Technique: Axial non-contrast imaging of the brain was performed. Dose reduction technique was used on this scan by utilizing automated exposure control and iterative reconstruction technique. The dose -length product (DLP) was 599.57 mGy-cm. Findings: There is no evidence of intracranial hemorrhage, mass lesion, or acute infarct. Brain par enchyma appears normal. The ventricles and subarachnoid spaces are normal in size. The calvarium ap pears normal. The visualized paranasal sinuses and mastoid air cells are clear. Impression: No significant abnormality seen. Reviewed, dictated and finalized at location . Impression: No significant abnormality seen.
== END 2025-04-23 08:54 | disposition home or self-care (01) ==
PROVIDERS: PCP Family Medicine; Visit Provider Family Medicine
DX: G43.919 Migraine, unspecified, intractable, without status migrainosus (principal); G89.29 Other chronic pain
CPT/HCPCS: 70450